=== PATIENT | female | born 1970 | race Two or more races ===

== ENCOUNTER 2017-09-06 10:11 | Emergency (ER) | payer SELFPAY ==
[2017-09-06 11:05] LABS: BASO # 0.1 x10^3/uL (0.0-0.2); BASO % 1 % (0-3); EOS % 1 % (0-3); HEMATOCRIT 40.6 % (36.0-47.0); HEMOGLOBIN 13.3 g/dL (12.0-15.5); LYMPH # 1.4 x10^3/uL (1.0-4.8); LYMPH % 24 % (24-48); MEAN CORPUSCULAR HEMOGLOBIN 27 pg (25-35); MEAN CORPUSCULAR HGB CONC 33 g/dL (31-37); MEAN CORPUSCULAR VOLUME 82 fL (79-100); MONO % 4 % (0-9); NEUT % 71 % (31-73); PLATELET COUNT 264 x10^3/uL (140-400); RED BLOOD COUNT 4.94 x10^6/uL (3.50-5.40)
[2017-09-06 11:07] LABS: BILIRUBIN,URINE NEGATIVE (NEG); GLUCOSE,URINE NEGATIVE (NEG); NITRITE,URINE NEGATIVE (NEG); PH,URINE 6.5; PROTEIN,URINE NEGATIVE (NEG-TRACE); UROBILINOGEN,URINE 0.2 mg/dL (0.2 mg/dL)
--- NOTE | 2017-09-06 11:07 | PHYS DOC ---
Past Medical History Past Medical History: No Pertinent History Past Surgical History: Cholecystectomy, Alcohol Use: Occasionally Drug Use: None Adult General Chief Complaint Chief Complaint: ABDOMINAL PAIN HPI HPI Patient is a 47 year old female presents to the emergency department stating that she is having abdominal pain and discomfort. She actually points to the epigastric area when you ask her where her pain is located. Patient states that she has vomited 5 times this morning denies any blood being in the emesis. She states she did not eat dinner last night. Patient denies any fever, chills denies any diarrhea. Patient states that she has vomited 5 times this morning since 5:00. Review of Systems Review of Systems Constitutional: Denies fever or chills [] Eyes: Denies change in visual acuity, redness, or eye pain [] HENT: Denies nasal congestion or sore throat [] Respiratory: Denies cough or shortness of breath [] Cardiovascular: No additional information not addressed in HPI [] GI: abdominal pain, nausea, vomiting, denies bloody stools or diarrhea [] : Denies dysuria or hematuria [] Musculoskeletal: Denies back pain or joint pain [] Integument: Denies rash or skin lesions [] Neurologic: Denies headache, focal weakness or sensory changes [] Endocrine: Denies polyuria or polydipsia [] All other systems were reviewed and found to be within normal limits, except as documented in this note. Current Medications Current Medications Current Medications Medications (Trade) Dose Ordered Sig/Boaz Start Time Stop Time Status Last Admin Dose Admin Famotidine (Pepcid Vial) 20 mg 1X ONCE 09/06/17 12:30 09/06/17 12:31 DC 09/06/17 12:21 20 MG Ondansetron HCl (Zofran) 4 mg 1X ONCE 09/06/17 11:45 09/06/17 11:47 DC 09/06/17 11:45 4 MG Allergies Allergies Allergies Coded Allergies Type Severity Reaction Last Updated Verified No Known Drug Allergies 09/06/17 No Physical Exam Physical Exam Constitutional: Well developed, well nourished, no acute distress, non-toxic appearance. [] HENT: Normocephalic, atraumatic, bilateral external ears normal, oropharynx moist, no oral exudates, nose normal. [] Eyes: PERRLA, EOMI, conjunctiva normal, no discharge. [] Neck: Normal range of motion, no tenderness, supple, no stridor. [] Cardiovascular:Heart rate regular rhythm, no murmur [] Lungs & Thorax: Bilateral breath sounds clear to auscultation [] Abdomen: Bowel sounds hypoactive, soft, epigastric tenderness, tenderness noted in the right upper quadrant area, positive Ramirez sign, no masses, no pulsatile masses. [] Skin: Warm, dry, no erythema, no rash. [] Extremities: No tenderness, no cyanosis, no clubbing, ROM intact, no edema. [] Neurologic: Alert and oriented X 3, normal motor function, normal sensory function, no focal deficits noted. [] Psychologic: Affect normal, judgement normal, mood normal. [] Current Patient Data Vital Signs Vital Signs Date Time Temp Pulse Resp B/P (MAP) Pulse Ox O2 Delivery O2 Flow Rate FiO2 09/06/17 11:38 98 22 133/72 (92) 95 Room Air 09/06/17 10:41 98.2 98.2 Lab Values Laboratory Tests Test 09/06/17 10:30 09/06/17 10:32 White Blood Count 6.0 x10^3/uL (4.0-11.0) Red Blood Count 4.94 x10^6/uL (3.50-5.40) Hemoglobin 13.3 g/dL (12.0-15.5) Hematocrit 40.6 % (36.0-47.0) Mean Corpuscular Volume 82 fL (79-100) Mean Corpuscular Hemoglobin 27 pg (25-35) Mean Corpuscular Hemoglobin Concent 33 g/dL (31-37) Red Cell Distribution Width 16.0 % (11.5-14.5) H Platelet Count 264 x10^3/uL (140-400) Neutrophils (%) (Auto) 71 % (31-73) Lymphocytes (%) (Auto) 24 % (24-48) Monocytes (%) (Auto) 4 % (0-9) Eosinophils (%) (Auto) 1 % (0-3) Basophils (%) (Auto) 1 % (0-3) Neutrophils # (Auto) 4.3 x10^3uL (1.8-7.7) Lymphocytes # (Auto) 1.4 x10^3/uL (1.0-4.8) Monocytes # (Auto) 0.2 x10^3/uL (0.0-1.1) Eosinophils # (Auto) 0.0 x10^3/uL (0.0-0.7) Basophils # (Auto) 0.1 x10^3/uL (0.0-0.2) Urine Collection Type Unknown Urine Color Yellow Urine Clarity Clear Urine pH 6.5 Urine Specific [place] 1.020 Urine Protein Negative mg/dL (NEG-TRACE) Urine Glucose (UA) Negative mg/dL (NEG) Urine Ketones (Stick) Negative mg/dL (NEG) Urine Blood Negative (NEG) Urine Nitrite Negative (NEG) Urine Bilirubin Negative (NEG) Urine Urobilinogen Dipstick 0.2 mg/dL (0.2 mg/dL) Urine Leukocyte Esterase Negative (NEG) Urine RBC 0 /HPF (0-2) Urine WBC Rare /HPF (0-4) Urine Squamous Epithelial Cells Mod /LPF Urine Bacteria 0 /HPF (0-FEW) Urine Mucus Slight /LPF Sodium Level 139 mmol/L (136-145) Potassium Level 3.5 mmol/L (3.5-5.1) Chloride Level 102 mmol/L (98-107) Carbon Dioxide Level 25 mmol/L (21-32) Anion Gap 12 (6-14) Blood Urea Nitrogen 9 mg/dL (7-20) Creatinine 0.7 mg/dL (0.6-1.0) Estimated GFR (Cockcroft-Gault) 89.7 BUN/Creatinine Ratio 13 (6-20) Glucose Level 125 mg/dL (70-99) H Calcium Level 9.3 mg/dL (8.5-10.1) Total Bilirubin 0.3 mg/dL (0.2-1.0) Aspartate Amino Transferase (AST) 31 U/L (15-37) Alanine Aminotransferase (ALT) 37 U/L (14-59) Alkaline Phosphatase 78 U/L (46-116) Total Protein 8.9 g/dL (6.4-8.2) H Albumin 4.1 g/dL (3.4-5.0) Albumin/Globulin Ratio 0.9 (1.0-1.7) L Amylase Level 79 U/L (25-115) Lipase 152 U/L (73-393) POC Urine HCG, Qualitative Hcg negative (Negative) Laboratory Tests 11/19/17 10:30 Laboratory Tests 09/06/17 10:30 EKG EKG [] Radiology/Procedures Radiology/Procedures [][facility] [address] [place] [address] IMAGING REPORT Signed PATIENT: ADITI FLORES ACCOUNT: [id number] : 1970 LOCATION: ER AGE: 47 SEX: F EXAM STATUS: REG ER ORD. PHYSICIAN: PAUL HEALY APRN REASON: right upper quadrant pain PROCEDURE: ABDOMEN LTD Right upper quadrant abdominal ultrasound History: right upper quadrant pain . Hematemesis x5 days. Comparison: None. Technique: Transabdominal ultrasound images are obtained. Findings: Due to over lying bowel gas portions of the liver, IVC, and pancreas are obscured. Right hepatic lobe measures 16.6 cm, normal. The echotexture of the liver may be mildly increased. There is decreased through transmission. There may be mild fatty infiltration. Common bile duct caliber is normal measuring 4 mm in diameter. Gallbladder is surgically absent. The right kidney measures 10.5 cm in length and is without evidence of obstruction or stone. Visualized portions of the aorta and IVC have normal caliber. IMPRESSION: 1. Limited exam. 2. Question mild fatty infiltration of the liver. 3. Cholecystectomy. DICTATED and SIGNED BY: NISHANT LEDESMA MD DATE: 09/06/17 1223 CC: PAUL HEALY APRN; NO PCP ~ Course & Med Decision Making Course & Med Decision Making Pertinent Labs and Imaging studies reviewed. (See chart for details) CBC, chemistries, ultrasound was within normal limits. Urinalysis was normal. Patient will be discharged home with recommendations to follow up with a GI physician within the next 3-5 days. She was recommended drink plenty of fluids. She'll be provided with a prescription for Zofran and Protonix. She is provided with signs and symptoms to return back to the emergency department. All questions and concerns been answered at the patients bedside. Upon providing patient with discharge patient had provided nursed with information that she is having blood streaks in her emesis. According to the kennel keeper at the bedside she states that she has vomited approximately one cup of blood. This had supposedly occurred at 5:00 this morning. At this time the hemoglobin and hematocrit remained normal. Patient had emesis here in the emergency department prior to receiving Zofran with no blood noted no streaking noted in the emesis. I've spoken with the patient and/or caregivers. I've explained the patient's condition, diagnosis and treatment plan based on information available to me at this time. I've answered the patient's and/or caregivers questions and addressed any concerns. The patient and/or caregivers have a good understanding the patient's diagnosis, condition and treatment plan as can be expected at this point. Vital signs have been stabilized. The patient's condition is stable for discharge from the emergency department. The patient will pursue further outpatient evaluation with her primary care provider or other designated consulting physician as outlined in the discharge instructions. Patient and/or caregivers are agreeable to this plan of care and follow-up instructions have been explained in detail. The patient and/or caregivers have received these instructions in written format and expressed understanding of these discharge instructions. The patient and her caregivers are aware that if any significant change in condition or worsening of symptoms should prompt him to immediately return to this of the closest emergency department. If an emergent department is not readily available I would encourage him to call 911. [] Dragon Disclaimer Dragon Disclaimer This electronic medical record was generated, in whole or in part, using a voice recognition dictation system. Departure Departure Impression: Primary Impression: Epigastric pain Additional Impression: Vomiting Disposition: 01 HOME, SELF-CARE Condition: STABLE Referrals: STEFFANIE CISNEROS MD Patient Instructions: Abdominal Pain (Nonspecific), Clear Liquid Diet, Easy-to- Read Additional Instructions: Activity as tolerated. Medications as prescribed. Clear liquid diet for the next 24 hours. Follow-up with a GI physician as provided here in the discharge instructions. Return back to emergency department for signs and symptoms become worse. Scripts Pantoprazole Sodium (PROTONIX) 20 Mg Tablet.dr 1 TAB PO DAILY, #30 TAB Prov: PAUL HEALY APRN 09/06/17 Ondansetron (ZOFRAN ODT) 4 Mg Tab.rapdis 1 TAB SL Q8HRS, #10 TAB Prov: PAUL HEALY APRN 09/06/17 Problem Qualifiers Additional Impression: Vomiting Vomiting type: unspecified Vomiting Intractability: unspecified Nausea presence: without nausea Qualified Codes: R11.11 - Vomiting without nausea PAUL HEALY JOB TRACER Sep 06, 2017 11:07
[2017-09-06 11:14] LABS: CALCIUM 9.3 mg/dL (8.5-10.1); CREATININE 0.7 mg/dL (0.6-1.0); GFR 89.7; POTASSIUM 3.5 mmol/L (3.5-5.1)
[2017-09-06 11:15] LABS: AMYLASE 79 U/L (25-115)
[2017-09-06 11:20] LABS: ALBUMIN 4.1 g/dL (3.4-5.0); ALBUMIN/GLOBULIN RATIO 0.9 (1.0-1.7); TOTAL BILIRUBIN 0.3 mg/dL (0.2-1.0); TOTAL PROTEIN 8.9 g/dL (6.4-8.2)
[2017-09-06 11:24] LABS: RBC,URINE 0 /HPF (0-2)
[2017-09-06 11:25] LABS: BACTERIA,URINE 0 /HPF (0-FEW); SQUAMOUS EPITHELIAL CELL,UR MOD /LPF; WBC,URINE RARE /HPF (0-4)
[2017-09-06] MEDS ORDERED: ONDANSETRON PF 4 MG/2 ML VIAL. IV ONE (11:45)
[2017-09-06] MEDS ORDERED: FAMOTIDINE 20 MG/2 ML VIAL IVP ONE (12:30)
--- NOTE | 2017-09-06 12:31 | RAD ---
Right upper quadrant abdominal ultrasound History: right upper quadrant pain . Hematemesis x5 days. Comparison: None. Technique: Transabdominal ultrasound images are obtained. Findings: Due to over lying bowel gas portions of the liver, IVC, and pancreas are obscured. Right hepatic lobe measures 16.6 cm, normal. The echotexture of the liver may be mildly increased. There is decreased through transmission. There may be mild fatty infiltration. Common bile duct caliber is normal measuring 4 mm in diameter. Gallbladder is surgically absent. The right kidney measures 10.5 cm in length and is without evidence of obstruction or stone. Visualized portions of the aorta and IVC have normal caliber. IMPRESSION: 1. Limited exam. 2. Question mild fatty infiltration of the liver. 3. Cholecystectomy.
[2017-09-06] MEDS ORDERED: ONDA4TAB10 SL (13:10)
[2017-09-06] MEDS ORDERED: PANT20TA2 PO (13:10)
[2017-09-06 13:15] VITALS: BP 121/74
== END 2017-09-06 13:20 | disposition home or self-care (01) ==
LOC: ER 10:11
DX: R10.13 Epigastric pain (principal); R11.11 Vomiting without nausea; R10.11 Right upper quadrant pain; Z90.49 Acquired absence of other specified parts of digestive tract; Z98.890 Other specified postprocedural states
CPT/HCPCS: 36415; 76705; 80053; 81001; 81025; 82150; 83690; 85025; 96374; 96375; 99285; J2405; S0028